=== PATIENT | female | born 1965 | race Caucasian/White ===

== ENCOUNTER → 2019-12-04 | Outpatient (CLI) | payer OTHER ==
[~2019-12-04] MED LIST: ALBIPROI INH; ALBU90OI INH; ALBU90OI6 INH; ARIP10 PO; ARIP30; ATOR10; AZIT250 PO; Abilify2 MG; Adult Low Dose81 MG PO; BCP; BUPR150ER PO; BUSP10; BUSP10 PO; BUSP5 PO; Benadryl 50 mg50 MG PO; CALCA500CH PO; CIPR500 PO; CLON.5 PO; DOC250 PO; DOCU100 PO; DOXY100 PO; DULO60 PO; Diflucan100 MG PO; Duoneb 2.5-0.5 M3 ML INH; FAMO20 PO; GABA400; GABA400 PO; GAVILAX17 GM PO; HYDACE5 PO; IBUP800; LAMO100; LAMO100 PO; LAMO25 PO; LAVAP17G PO; METO25 PO; METPRE4DP PO; Monodox100 MG PO; NITR100CA PO; OXYACE5T PO; PANT40; PHENA200 PO; PRED10 PO; PRED20 PO; PROM25 PO; Prednisone20 MG PO; QUET200; QUET25; QUET25 PO; RXHYDACE PO; RXOXYACE PO; SENN187 PO; SIME80CH PO; SULTRIDS PO; TERC.4TC PV; Ultram50 MG PO; VENL75ER; VENL75ER PO; VIBRID; Vistaril25 MG PO; Zofran4 MG PO
[2019-12-07 05:31] LABS: CHLAMYDIA TRACHOMATIS, NAA Negative (Negative); NEISSERIA GONORRHOEAE, NAA Negative (Negative)
== END | disposition home or self-care (01) ==
LOC: LAB 18:11 → LAB SHORT 18:11
PROVIDERS: Obstetrics & Gynecology
DX: N89.8 Other specified noninflammatory disorders of vagina (principal); Z20.2 Contact with and (suspected) exposure to infections with a predominantly sexual mode of transmission
CPT/HCPCS: 87070; 87205; 87491; 87591

== ENCOUNTER 2021-01-19 21:26 | Emergency (ER) | payer OTHER ==
[~2021-01-19] VITALS: Ht 167.6 cm; Wt 63.5 kg
== END 2021-01-19 23:44 | disposition home or self-care (01) ==
LOC: ER 21:26
DX: S01.511A Laceration without foreign body of lip, initial encounter (principal); Z88.0 Allergy status to penicillin; Z88.8 Allergy status to other drugs, medicaments and biological substances; Z79.899 Other long term (current) drug therapy
CPT/HCPCS: 12013; 99282-25; A9270

== ENCOUNTER 2021-01-22 11:59 | Emergency (ER) | payer OTHER ==
[~2021-01-22] VITALS: Ht 167.6 cm; Wt 64.9 kg
[~2021-01-22 11:59] MED LIST changes: +Cleocin HCl300 MG PO; +LATUDA PO; +QVAR REDIHALE10.6 G3 INH
[2021-01-22 12:31] LABS: BASOPHILS ABSOLUTE AUTO 0.03 K/mm3 (0.00-0.23); BASOPHILS PERCENT AUTO 0 % (0-2); EOSINOPHILS PERCENT AUTO 3 % (0-6); Hematocrit 42.5 % (33.0-51.0); Hemoglobin 14.4 g/dL (11.5-16.0); IMMATURE GRAN ABSOLUTE AUTO 0.01 K/mm3 (0.00-0.10); IMMATURE GRAN PERCENT AUTO 0 % (0-1); LYMPHOCYTES ABSOLUTE AUTO 2.63 K/mm3 (0.84-5.20); LYMPHOCYTES PERCENT AUTO 35 % (21-46); MONOCYTES ABSOLUTE AUTO 0.54 K/mm3 (0.16-1.47); MONOCYTES PERCENT AUTO 7 % (4-13); Mean Corpuscular HGB 29.6 pg (26.0-34.0); Mean Corpuscular HGB Conc 33.9 g/dL (31.5-36.5); Mean Corpuscular Volume 87 fL (80-100); Mean Platelet Volume 9.6 fL (9.1-12.4); NEUTROPHILS ABSOLUTE AUTO 4.11 K/mm3 (1.96-9.15); NEUTROPHILS PERCENT AUTO 55 % (41-73); Platelet Count 256 K/mm3 (150-400); RDW Coefficient Variation 12.9 % (11.7-14.2); RDW Standard Deviation 41.2 fL (35.1-46.3); Red Blood Cell Count 4.86 M/mm3 (3.80-5.20); White Blood Cell Count 7.52 K/mm3 (4.00-11.30)
[2021-01-22 12:54] LABS: Alanine Aminotransfer (ALT/SGP 17 U/L (12-78); Albumin, Blood 3.5 g/dL (3.4-5.0); Albumin/Globulin Ratio 0.9 (0.8-1.8); Alk Phos 54 U/L (50-136); Anion Gap 4 mmol/L (6-16); Aspartate Aminotrans (AST/SGOT 13 U/L (12-37); Bilirubin, Total 0.4 mg/dL (0.1-1.0); Blood Urea Nitrogen 16 mg/dL (8-24); Bun/Creatinine Ratio 14.8 (12.0-20.0); CO2, Blood 28 mmol/L (21-32); Calcium, Blood 8.5 mg/dL (8.5-10.1); Chloride, Blood 109 mmol/L (98-108); Creatinine, Blood 1.08 mg/dL (0.40-1.00); Globulin, Blood 3.7 g/dL (2.2-4.0); Glomerular Filtration Rate 56 (60-); Glucose, Blood 85 mg/dL (70-99); Potassium, Blood 4.7 mmol/L (3.5-5.5); Sodium, Blood 141 mmol/L (136-145); Total Protein, Blood 7.2 g/dL (6.4-8.2); Troponin I <0.015 ng/mL (0.000-0.040)
[2021-01-22] MEDS ORDERED: ALBU90OI INH (15:00)
== END 2021-01-22 15:20 | disposition home or self-care (01) ==
LOC: ER 11:59
PROVIDERS: Physician Assistant
DX: J45.901 Unspecified asthma with (acute) exacerbation (principal); Z79.899 Other long term (current) drug therapy
CPT/HCPCS: 36415; 71046; 80053; 84484; 85025; 93005; 93010; 94640; 94760; 99285-25

== ENCOUNTER → 2021-05-30 | Outpatient (CLI) | payer OTHER ==
[2021-05-30 17:48] LABS: Albumin/Globulin Ratio 1.1 (0.8-1.8); Bilirubin, Total 0.5 mg/dL (0.1-1.0); Bun/Creatinine Ratio 11.6 (12.0-20.0); Calcium, Blood 9.6 mg/dL (8.5-10.1); Creatinine, Blood 1.12 mg/dL (0.40-1.00); Globulin, Blood 3.6 g/dL (2.2-4.0); Potassium, Blood 4.3 mmol/L (3.5-5.5); Total Protein, Blood 7.6 g/dL (6.4-8.2)
== END | disposition home or self-care (01) ==
LOC: LAB SHORT 13:51 → LAB 13:51
PROVIDERS: Physician Assistant
DX: E55.9 Vitamin D deficiency, unspecified (principal); R94.4 Abnormal results of kidney function studies
CPT/HCPCS: 80053; 82306

== ENCOUNTER → 2021-10-12 | Outpatient (CLI) | payer OTHER ==
[2021-10-12 14:09] LABS: Albumin, Blood 3.4 g/dL (3.4-5.0); Albumin/Globulin Ratio 0.9 (0.8-1.8); Bilirubin, Total 0.4 mg/dL (0.1-1.0); Bun/Creatinine Ratio 16.7 (12.0-20.0); Calcium, Blood 9.1 mg/dL (8.5-10.1); Creatinine, Blood 1.26 mg/dL (0.40-1.00); Globulin, Blood 3.6 g/dL (2.2-4.0); Potassium, Blood 4.3 mmol/L (3.5-5.5)
== END | disposition home or self-care (01) ==
LOC: LAB SHORT 10:20
PROVIDERS: Physician Assistant
DX: R94.4 Abnormal results of kidney function studies (principal)
CPT/HCPCS: 80053

== ENCOUNTER → 2021-10-12 | Outpatient (CLI) | payer OTHER ==
[2021-10-13 10:10] LABS: Candida species (DNA Probe) Negative (NEGATIVE); G. vaginalis (DNA Probe) Negative (NEGATIVE); T. vaginalis (DNA Probe) Positive (NEGATIVE)
== END | disposition home or self-care (01) ==
LOC: LAB SHORT 10:20
PROVIDERS: Physician Assistant
DX: L29.3 Anogenital pruritus, unspecified (principal)
CPT/HCPCS: 87086; 87480; 87510; 87660

== ENCOUNTER 2022-08-01 13:47 | Emergency (ER) | payer OTHER ==
[~2022-08-01] VITALS: Ht 167.6 cm; Wt 68.0 kg
[2022-08-01 15:01] LABS: BASOPHILS ABSOLUTE AUTO 0.04 K/mm3 (0.00-0.23); BASOPHILS PERCENT AUTO 1 % (0-2); EOSINOPHILS ABSOLUTE AUTO 0.06 K/mm3 (0.00-0.68); EOSINOPHILS PERCENT AUTO 1 % (0-6); Hematocrit 43.7 % (33.0-51.0); Hemoglobin 14.5 g/dL (11.5-16.0); IMMATURE GRAN ABSOLUTE AUTO 0.01 K/mm3 (0.00-0.10); IMMATURE GRAN PERCENT AUTO 0 % (0-1); LYMPHOCYTES ABSOLUTE AUTO 3.38 K/mm3 (0.84-5.20); LYMPHOCYTES PERCENT AUTO 44 % (21-46); MONOCYTES ABSOLUTE AUTO 0.46 K/mm3 (0.16-1.47); MONOCYTES PERCENT AUTO 6 % (4-13); Mean Corpuscular HGB 29.6 pg (26.0-34.0); Mean Corpuscular HGB Conc 33.2 g/dL (31.5-36.5); Mean Corpuscular Volume 89 fL (80-100); Mean Platelet Volume 8.9 fL (9.1-12.4); NEUTROPHILS ABSOLUTE AUTO 3.66 K/mm3 (1.96-9.15); NEUTROPHILS PERCENT AUTO 48 % (41-73); Platelet Count 320 K/mm3 (150-400); RDW Coefficient Variation 13.1 % (11.7-14.2); White Blood Cell Count 7.61 K/mm3 (4.00-11.30)
[2022-08-01 15:53] LABS: Albumin, Blood 3.8 g/dL (3.4-5.0); Albumin/Globulin Ratio 1.1 (0.8-1.8); Bilirubin, Total 0.3 mg/dL (0.1-1.0); Calcium, Blood 9.1 mg/dL (8.5-10.1); Creatinine, Blood 1.05 mg/dL (0.40-1.00); Globulin, Blood 3.5 g/dL (2.2-4.0); Potassium, Blood 3.9 mmol/L (3.5-5.5); Total Protein, Blood 7.3 g/dL (6.4-8.2)
[2022-08-01] MEDS ORDERED: BUPROPION XL150 M1 PO (17:05)
[2022-08-01] MEDS ORDERED: Lamictal150 MG PO (17:06)
[2022-08-01] MEDS ORDERED: BUPR75 PO (17:07)
[2022-08-01] MEDS ORDERED: HYDR1TAB94 PO (19:19)
== END 2022-08-01 19:40 | disposition home or self-care (01) ==
LOC: ER 13:47
PROVIDERS: Physician Assistant
DX: R10.11 Right upper quadrant pain (principal); K80.50 Calculus of bile duct without cholangitis or cholecystitis without obstruction; Z88.0 Allergy status to penicillin; Z88.8 Allergy status to other drugs, medicaments and biological substances; Z79.899 Other long term (current) drug therapy; J45.909 Unspecified asthma, uncomplicated
CPT/HCPCS: 36415; 71046; 76705; 80053; 83690; 84484; 85025; 93005; 93010; J2405; J3010; J7030

== ENCOUNTER → 2022-08-04 | Outpatient (CLI) | payer OTHER ==
[~2022-08-04] MED LIST changes: +BUPR75 PO; +BUPROPION XL150 M1 PO; +HYDR1TAB94 PO; +Lamictal150 MG PO
[2022-08-04 17:25] LABS: Albumin, Blood 3.7 g/dL (3.4-5.0); Albumin/Globulin Ratio 1.1 (0.8-1.8); Bilirubin, Total 0.3 mg/dL (0.1-1.0); Bun/Creatinine Ratio 16.8 (12.0-20.0); Calcium, Blood 8.8 mg/dL (8.5-10.1); Creatinine, Blood 1.07 mg/dL (0.40-1.00); Globulin, Blood 3.4 g/dL (2.2-4.0); Total Protein, Blood 7.1 g/dL (6.4-8.2)
[2022-08-04 17:30] LABS: BASOPHILS ABSOLUTE AUTO 0.04 K/mm3 (0.00-0.23); BASOPHILS PERCENT AUTO 1 % (0-2); EOSINOPHILS ABSOLUTE AUTO 0.07 K/mm3 (0.00-0.68); EOSINOPHILS PERCENT AUTO 1 % (0-6); Hematocrit 38.7 % (33.0-51.0); Hemoglobin 13.2 g/dL (11.5-16.0); IMMATURE GRAN ABSOLUTE AUTO 0.02 K/mm3 (0.00-0.10); IMMATURE GRAN PERCENT AUTO 0 % (0-1); LYMPHOCYTES ABSOLUTE AUTO 2.99 K/mm3 (0.84-5.20); LYMPHOCYTES PERCENT AUTO 43 % (21-46); MONOCYTES ABSOLUTE AUTO 0.48 K/mm3 (0.16-1.47); MONOCYTES PERCENT AUTO 7 % (4-13); Mean Corpuscular HGB Conc 34.1 g/dL (31.5-36.5); Mean Corpuscular Volume 88 fL (80-100); NEUTROPHILS ABSOLUTE AUTO 3.36 K/mm3 (1.96-9.15); NEUTROPHILS PERCENT AUTO 48 % (41-73); Platelet Count 283 K/mm3 (150-400); White Blood Cell Count 6.96 K/mm3 (4.00-11.30)
== END | disposition home or self-care (01) ==
LOC: LAB SHORT 17:03 → LAB 17:03
PROVIDERS: Physician Assistant Surgical
DX: R10.11 Right upper quadrant pain (principal)
CPT/HCPCS: 80053; 83690; 85025

== ENCOUNTER 2023-05-27 12:15 | Emergency (ER) | payer OTHER ==
[~2023-05-27] VITALS: Ht 167.6 cm; Wt 69.8 kg
[2023-05-27 12:53] LABS: BASOPHILS ABSOLUTE AUTO 0.02 K/mm3 (0.00-0.23); BASOPHILS PERCENT AUTO 0 % (0-2); EOSINOPHILS ABSOLUTE AUTO 0.25 K/mm3 (0.00-0.68); EOSINOPHILS PERCENT AUTO 4 % (0-6); Hematocrit 40.8 % (33.0-51.0); Hemoglobin 13.6 g/dL (11.5-16.0); IMMATURE GRAN ABSOLUTE AUTO 0.01 K/mm3 (0.00-0.10); IMMATURE GRAN PERCENT AUTO 0 % (0-1); LYMPHOCYTES ABSOLUTE AUTO 2.42 K/mm3 (0.84-5.20); LYMPHOCYTES PERCENT AUTO 37 % (21-46); MONOCYTES ABSOLUTE AUTO 0.39 K/mm3 (0.16-1.47); MONOCYTES PERCENT AUTO 6 % (4-13); Mean Corpuscular HGB 29.4 pg (26.0-34.0); Mean Corpuscular HGB Conc 33.3 g/dL (31.5-36.5); Mean Corpuscular Volume 88 fL (80-100); Mean Platelet Volume 9.4 fL (9.1-12.4); NEUTROPHILS ABSOLUTE AUTO 3.41 K/mm3 (1.96-9.15); NEUTROPHILS PERCENT AUTO 53 % (41-73); Platelet Count 282 K/mm3 (150-400); RDW Coefficient Variation 12.9 % (11.7-14.2); RDW Standard Deviation 41.9 fL (35.1-46.3); Red Blood Cell Count 4.63 M/mm3 (3.80-5.20)
[2023-05-27 13:10] LABS: Albumin, Blood 3.3 g/dL (3.4-5.0); Albumin/Globulin Ratio 1.1 (0.8-1.8); Bilirubin, Total 0.3 mg/dL (0.1-1.0); Bun/Creatinine Ratio 17.1 (12.0-20.0); Calcium, Blood 8.4 mg/dL (8.5-10.1); Creatinine, Blood 0.94 mg/dL (0.40-1.00); Globulin, Blood 2.9 g/dL (2.2-4.0); Potassium, Blood 4.2 mmol/L (3.5-5.5); Total Protein, Blood 6.2 g/dL (6.4-8.2)
[2023-05-27 16:00] VITALS: BP 147/82
[2023-05-27 16:43] LABS: Source, Urine Clean Catch
[2023-05-27 16:49] LABS: Appearance, Urine Clear (Clear); Bilirubin, Urine Neg (Neg); Blood, Urine 3+ (Neg); Color, Urine Yellow (P-Yellow); Glucose Qualitative, Urine Neg (Neg); Ketones, Urine Neg (Neg); Leukocyte Esterase, Urine Neg (Neg); Nitrite, Urine Neg (Neg); Protein, Urine Neg (Neg); Specific Gravity, Urine 1.015 (1.003-1.022); Urobilinogen, Urine 1+ (Normal); pH, Urine 6.5 (5.0-8.0)
[2023-05-27 16:57] LABS: Bacteria Few /hpf; Squamous Epithelial Cells Mod /hpf (Few); White Blood Cells, Urine 0-2 /hpf (0-5)
== END 2023-05-27 17:09 | disposition home or self-care (01) ==
LOC: ER 12:15
PROVIDERS: Student in an Organized Health Care Education/Training Program
DX: K59.00 Constipation, unspecified (principal); R14.0 Abdominal distension (gaseous); Z88.8 Allergy status to other drugs, medicaments and biological substances; Z88.0 Allergy status to penicillin; J45.909 Unspecified asthma, uncomplicated; F17.200 Nicotine dependence, unspecified, uncomplicated
CPT/HCPCS: 80053; 81001; 83690; 85025; 93005; 93010; 99284

== ENCOUNTER → 2023-08-27 | Outpatient (CLI) | payer OTHER | LOC: LAB SHORT 09:45 → LAB 09:45 | DX: R82.79 Other abnormal findings on microbiological examination of urine (principal) | CPT/HCPCS: 87077; 87086; 87186 ==

== ENCOUNTER 2023-09-20 19:11 | Emergency (ER) | payer OTHER ==
[~2023-09-20] VITALS: Ht 167.6 cm; Wt 66.2 kg
[2023-09-20 19:28] VITALS: BP 142/76
[2023-09-20 19:43] LABS: BASOPHILS ABSOLUTE AUTO 0.03 K/mm3 (0.00-0.23); BASOPHILS PERCENT AUTO 0 % (0-2); EOSINOPHILS ABSOLUTE AUTO 0.07 K/mm3 (0.00-0.68); EOSINOPHILS PERCENT AUTO 1 % (0-6); Hematocrit 41.6 % (33.0-51.0); IMMATURE GRAN ABSOLUTE AUTO 0.02 K/mm3 (0.00-0.10); IMMATURE GRAN PERCENT AUTO 0 % (0-1); LYMPHOCYTES ABSOLUTE AUTO 2.14 K/mm3 (0.84-5.20); LYMPHOCYTES PERCENT AUTO 25 % (21-46); MONOCYTES ABSOLUTE AUTO 0.48 K/mm3 (0.16-1.47); MONOCYTES PERCENT AUTO 6 % (4-13); Mean Corpuscular HGB Conc 33.7 g/dL (31.5-36.5); Mean Corpuscular Volume 89 fL (80-100); Mean Platelet Volume 9.3 fL (9.1-12.4); NEUTROPHILS ABSOLUTE AUTO 5.72 K/mm3 (1.96-9.15); NEUTROPHILS PERCENT AUTO 68 % (41-73); Platelet Count 314 K/mm3 (150-400); RDW Coefficient Variation 12.7 % (11.7-14.2); RDW Standard Deviation 41.3 fL (35.1-46.3); Red Blood Cell Count 4.67 M/mm3 (3.80-5.20); White Blood Cell Count 8.46 K/mm3 (4.00-11.30)
[2023-09-20 20:03] LABS: Albumin, Blood 3.3 g/dL (3.4-5.0); Albumin/Globulin Ratio 0.9 (0.8-1.8); Bilirubin, Total 0.3 mg/dL (0.1-1.0); Bun/Creatinine Ratio 15.5 (12.0-20.0); Creatinine, Blood 1.03 mg/dL (0.40-1.00); Globulin, Blood 3.6 g/dL (2.2-4.0); Total Protein, Blood 6.9 g/dL (6.4-8.2)
[2023-09-20 20:33] LABS: Source, Urine Clean Catch
[2023-09-20 20:41] LABS: Bilirubin, Urine Neg (Neg); Blood, Urine 2+ (Neg); Glucose Qualitative, Urine Neg (Neg); Ketones, Urine Neg (Neg); Leukocyte Esterase, Urine 1+ (Neg); Nitrite, Urine Neg (Neg); Protein, Urine Neg (Neg); Urobilinogen, Urine NORM (Normal); pH, Urine 6.5 (5.0-8.0)
[2023-09-20 20:59] LABS: Appearance, Urine Clear (Clear); Color, Urine Yellow (P-Yellow)
[2023-09-20 21:00] LABS: Bacteria Few /hpf; Red Blood Cells, Urine 0-2 /hpf (0-2); Squamous Epithelial Cells Few /hpf (Few); White Blood Cells, Urine 0-2 /hpf (0-5)
== END 2023-09-20 21:26 | disposition left against medical advice (07) ==
LOC: ER 19:11
PROVIDERS: Student in an Organized Health Care Education/Training Program
DX: R55 Syncope and collapse (principal); R42 Dizziness and giddiness; I10 Essential (primary) hypertension; Z53.21 Procedure and treatment not carried out due to patient leaving prior to being seen by health care provider
CPT/HCPCS: 80053; 81001; 85025; 87077; 87086; 87186; 93005; 93010

== ENCOUNTER 2023-10-28 21:29 | Emergency (ER) | payer OTHER ==
[~2023-10-28] VITALS: Ht 167.6 cm; Wt 67.1 kg
[2023-10-28 21:30] VITALS: BP 166/93
== END 2023-10-28 21:52 | disposition home or self-care (01) ==
LOC: ER 21:29
DX: R04.0 Epistaxis (principal); Y04.0XXA Assault by unarmed brawl or fight, initial encounter; Y92.129 Unspecified place in nursing home as the place of occurrence of the external cause; F17.200 Nicotine dependence, unspecified, uncomplicated; J45.909 Unspecified asthma, uncomplicated; F31.9 Bipolar disorder, unspecified
CPT/HCPCS: A9270

== ENCOUNTER 2024-11-10 09:02 | Emergency (ER) | payer OTHER ==
[~2024-11-10] VITALS: Ht 167.6 cm; Wt 68.0 kg
[2024-11-10 09:09] VITALS: BP 152/75
[2024-11-10] MEDS ORDERED: Acetaminophen 500 MG Tab PO ONE (09:40)
[2024-11-10] MEDS ORDERED: Ibuprofen 600 MG Tab PO ONE (09:40)
[2024-11-10] MEDS ORDERED: OxyCODONE HCL 5 MG TAB PO ONE (12:05)
[2024-11-10] MEDS ORDERED: RX Prepack 6 Tabs Oxycodone 5mg UD ONE (12:05)
== END 2024-11-10 12:30 | disposition home or self-care (01) ==
LOC: ER 09:02
DX: S82.031A Displaced transverse fracture of right patella, initial encounter for closed fracture (principal); I12.9 Hypertensive chronic kidney disease with stage 1 through stage 4 chronic kidney disease, or unspecified chronic kidney disease; N18.9 Chronic kidney disease, unspecified; E78.5 Hyperlipidemia, unspecified; J45.909 Unspecified asthma, uncomplicated; F17.210 Nicotine dependence, cigarettes, uncomplicated; Z88.0 Allergy status to penicillin; Z88.8 Allergy status to other drugs, medicaments and biological substances; Z79.899 Other long term (current) drug therapy; Z59.89 Other problems related to housing and economic circumstances; W01.0XXA Fall on same level from slipping, tripping and stumbling without subsequent striking against object, initial encounter
CPT/HCPCS: 73562-RT; 99283-25; A9270

== ENCOUNTER 2024-11-19 11:27 | Day surgery (SDC) | payer OTHER ==
[~2024-11-19] VITALS: Ht 167.6 cm; Wt 74.8 kg
[~2024-11-19 11:27] MED LIST changes: +Bupivacaine 0.5% W/EPI 1:200000 SDV 30 ML Vial ONE; +Lactated Ringer's 1,000 ML IV ONE
[2024-11-19] MEDS ORDERED: propofoL 20 ML IV ONE (11:57)
[2024-11-19] MEDS ORDERED: FentaNYL Citrate 50 MCG/ML 2 ML Injection ONE ×2 (11:57→14:43)
[2024-11-19] MEDS ORDERED: Ondansetron HCl 2 MG / ML 2ML Vial ONE (11:58)
[2024-11-19] MEDS ORDERED: Dexamethasone Sod Phos 10 MG/ML 1ML VIAL ONE (11:58)
[2024-11-19] MEDS ORDERED: Ketorolac Tromethamine 30mg Vial ONE (11:58)
[2024-11-19] MEDS ORDERED: MONT10T (12:16)
[2024-11-19] MEDS ORDERED: ESTRADIOL1 M1 PO (12:16)
[2024-11-19] MEDS ORDERED: AMLODIPINE BESYL5 MG PO (12:17)
[2024-11-19] MEDS ORDERED: VRAYLAR6 MG PO (12:17)
[2024-11-19] MEDS ORDERED: LOSA50 PO (12:17)
[2024-11-19] MEDS ORDERED: FAMO20 (12:20)
[2024-11-19] MEDS ORDERED: OMEP20ER PO (12:20)
[2024-11-19] MEDS ORDERED: ANORO ELLIPTA1 EAC1 INH (12:21)
[2024-11-19] MEDS ORDERED: Lactated Ringer's 1,000 ML IV ONE (12:37)
[2024-11-19] MEDS ORDERED: Midazolam HCl 1MG / ML 2ML Vial ONE (12:44)
[2024-11-19] MEDS ORDERED: CeFAZolin Sodium 2,000 MG VIAL ONE (12:50)
[2024-11-19] MEDS ORDERED: Dexmedetomidine HCL 200 MCG / 2 ML ONE (12:53)
--- NOTE | 2024-11-19 12:55 | NUR ---
11/19/24 1255 Cj Brennan IN PRE-OP
--- NOTE | 2024-11-19 15:00 | NUR ---
11/19/24 1500 Shy Benjamin PT LYING IN BED, DROWSY. ABLE TO REST AND FALL ASLEEP REPORTS PAIN 10/10 ON NUMERIC PAIN SCALE. EXPLAINED PAIN SCALE IN DETAIL TO PATIENT.
[2024-11-19 15:12] VITALS: BP 141/67
== END 2024-11-19 15:51 | disposition home or self-care (01) ==
LOC: ORSCSDS 11:27
PROVIDERS: Orthopaedic Surgery
PROC: 0QSD04Z Reposition Right Patella with Internal Fixation Device, Open Approach (ICD-10-PCS; principal; 2024-11-19 13:15)
DX: S82.001A Unspecified fracture of right patella, initial encounter for closed fracture (principal); W10.2XXA Fall (on)(from) incline, initial encounter; F17.210 Nicotine dependence, cigarettes, uncomplicated; J44.89 Other specified chronic obstructive pulmonary disease; Z79.899 Other long term (current) drug therapy; F41.9 Anxiety disorder, unspecified; F32.A Depression, unspecified; F31.9 Bipolar disorder, unspecified; E78.5 Hyperlipidemia, unspecified
CPT/HCPCS: 93005; 93010; J0690; J1100; J1885; J2250; J2405; J2704; J3010; J7120

== ENCOUNTER 2024-12-01 10:16 | Inpatient (IN) | payer OTHER ==
[~2024-12-01] VITALS: Ht 167.6 cm; Wt 76.5 kg
[2024-12-01] VITALS (10 sets, daily range): BP systolic 100–123; BP diastolic 62–92
[~2024-12-01 10:16] MED LIST changes: +AMLODIPINE BESYL5 MG PO; +ANORO ELLIPTA1 EAC1 INH; -Bupivacaine 0.5% W/EPI 1:200000 SDV 30 ML Vial ONE; +ESTRADIOL1 M1 PO; +LOSA50 PO; -Lactated Ringer's 1,000 ML IV ONE; +MONT10T PO; +OMEP20ER PO; +VRAYLAR6 MG PO
[2024-12-01 11:32] LABS: BASOPHILS PERCENT AUTO 1 % (0-2); EOSINOPHILS ABSOLUTE AUTO 0.18 K/mm3 (0.00-0.68); EOSINOPHILS PERCENT AUTO 1 % (0-6); Hematocrit 34.7 % (33.0-51.0); Hemoglobin 11.5 g/dL (11.5-16.0); IMMATURE GRAN ABSOLUTE AUTO 0.59 K/mm3 (0.00-0.10); IMMATURE GRAN PERCENT AUTO 3 % (0-1); LYMPHOCYTES ABSOLUTE AUTO 0.86 K/mm3 (0.84-5.20); LYMPHOCYTES PERCENT AUTO 5 % (21-46); MONOCYTES ABSOLUTE AUTO 0.72 K/mm3 (0.16-1.47); MONOCYTES PERCENT AUTO 4 % (4-13); Mean Corpuscular HGB 29.3 pg (26.0-34.0); Mean Corpuscular HGB Conc 33.1 g/dL (31.5-36.5); Mean Corpuscular Volume 89 fL (80-100); Mean Platelet Volume 8.8 fL (9.1-12.4); NEUTROPHILS ABSOLUTE AUTO 16.39 K/mm3 (1.96-9.15); NEUTROPHILS PERCENT AUTO 87 % (41-73); Platelet Count 657 K/mm3 (150-400); RDW Coefficient Variation 14.7 % (11.7-14.2); RDW Standard Deviation 47.6 fL (35.1-46.3); Red Blood Cell Count 3.92 M/mm3 (3.80-5.20); White Blood Cell Count 18.84 K/mm3 (4.00-11.30)
[2024-12-01 12:02] LABS: Albumin, Blood 1.9 g/dL (3.4-5.0); Albumin/Globulin Ratio 0.4 (0.8-1.8); Bilirubin, Total 0.6 mg/dL (0.1-1.0); Bun/Creatinine Ratio 26.4 (12.0-20.0); Calcium, Blood 8.7 mg/dL (8.5-10.1); Creatinine, Blood 1.1 mg/dL (0.40-1.00); Globulin, Blood 4.8 g/dL (2.2-4.0); Potassium, Blood 4.1 mmol/L (3.5-5.5); Total Protein, Blood 6.7 g/dL (6.4-8.2)
[2024-12-01] MEDS ORDERED: Vancomycin HCL 1,500 MG in NS 250 ML IV ONE (12:35)
[2024-12-01] MEDS ORDERED: HYDROmorphone HCl/Pf 1MG SYR IV ONE (13:15)
[2024-12-01] MEDS ORDERED: Lactated Ringer's 1,000 ML IV SCH ×3 (13:25→16:25)
[2024-12-01] MEDS ORDERED: Albuterol 2.5 MG/3 ML VIAL INH PRN (13:25)
[2024-12-01] MEDS ORDERED: FLU VACC TS2024-25(6MOS UP)/PF 45 MCG/0.5 ML SYRINGE IM SCH (13:25)
[2024-12-01] MEDS ORDERED: HYDROmorphone HCl/Pf 1MG SYR IV PRN (13:25)
[2024-12-01] MEDS ORDERED: MetroNIDAZOLE 500MG/NS 100 ml 100 ML IV SCH ×2 (14:00→23:00)
[2024-12-01] MEDS ORDERED: Metoclopramide HCl 5MG / ML 2ML Vial ONE (14:38)
[2024-12-01] MEDS ORDERED: Ondansetron HCl 2 MG / ML 2ML Vial ONE (14:38)
[2024-12-01] MEDS ORDERED: Ketorolac Tromethamine 30mg Vial ONE (14:38)
[2024-12-01] MEDS ORDERED: Dexamethasone Sod Phos 10 MG/ML 1ML VIAL ONE (14:38)
[2024-12-01] MEDS ORDERED: propofoL 20 ML IV ONE ×2 (14:39→16:57)
[2024-12-01] MEDS ORDERED: Ketamine HCl 100 MG / ML 5ML Vial ONE (15:22)
[2024-12-01] MEDS ORDERED: HYDROmorphone HCl/Pf 1MG SYR ONE (15:22)
[2024-12-01] MEDS ORDERED: propofoL 50 ML IV ONE (15:56)
[2024-12-01] MEDS ORDERED: Acetaminophen 500 MG Tab PO ONE (16:25)
[2024-12-01] MEDS ORDERED: Phenylephrine HCl 100 MCG/ML-NS 10MLSYR (1MG/10ML) ONE (16:45)
--- NOTE | 2024-12-01 16:49 | NUR ---
1610- PT ARRIVED TO DAY SURGERY FROM ER ROOM 23 AFTER ULTRASOUND COMPLETE. PT ASSISTED INTO PATIENT GOWN, BELONGINGS INTO PT BAG WITH NAME ON IT. GLASSES PLACED IN BAG WITH PATIENT LABEL AND PLACED INTO PT'S PURSE. BELONGS BED PLACED UNDER GURNEY. PT C/O BEING COLD. WARM BLANKETS APPLIED AND NASIM HUGGER STARTED. PT TEARFUL, STATES "THE WARM BLANKETS JUST FEEL SO NICE." TYLENOL 1000MG PO GIVEN WITH SIPS OF WATER PER ANESTHESIOLOGIST ORDER.
[2024-12-01] MEDS ORDERED: Vancomycin HCl 1000 MG ADDvantage ONE (17:19)
[2024-12-01] MEDS ORDERED: Sodium Hypochlorite 480 ML BTL (0.25%) ONE (17:24)
[2024-12-01] MEDS ORDERED: Sennosides 8.6 MG Tab PO SCH (21:00)
[2024-12-02 00:13] VITALS: BP 100/63
[2024-12-02] MEDS ORDERED: Vancomycin HCL 750 MG in NS 250 ML IV SCH (01:00)
[2024-12-02 05:31] LABS: BASOPHILS ABSOLUTE AUTO 0.04 K/mm3 (0.00-0.23); BASOPHILS PERCENT AUTO 0 % (0-2); EOSINOPHILS ABSOLUTE AUTO 0.01 K/mm3 (0.00-0.68); EOSINOPHILS PERCENT AUTO 0 % (0-6); Hematocrit 28.2 % (33.0-51.0); Hemoglobin 9.1 g/dL (11.5-16.0); IMMATURE GRAN ABSOLUTE AUTO 0.59 K/mm3 (0.00-0.10); IMMATURE GRAN PERCENT AUTO 3 % (0-1); LYMPHOCYTES ABSOLUTE AUTO 0.83 K/mm3 (0.84-5.20); LYMPHOCYTES PERCENT AUTO 4 % (21-46); MONOCYTES ABSOLUTE AUTO 0.62 K/mm3 (0.16-1.47); MONOCYTES PERCENT AUTO 3 % (4-13); Mean Corpuscular HGB 29.2 pg (26.0-34.0); Mean Corpuscular HGB Conc 32.3 g/dL (31.5-36.5); Mean Corpuscular Volume 90 fL (80-100); Mean Platelet Volume 8.8 fL (9.1-12.4); NEUTROPHILS ABSOLUTE AUTO 18.53 K/mm3 (1.96-9.15); NEUTROPHILS PERCENT AUTO 90 % (41-73); Platelet Count 584 K/mm3 (150-400); RDW Coefficient Variation 14.7 % (11.7-14.2); RDW Standard Deviation 48.4 fL (35.1-46.3); Red Blood Cell Count 3.12 M/mm3 (3.80-5.20); White Blood Cell Count 20.62 K/mm3 (4.00-11.30)
[2024-12-02 05:48] VITALS: BP 97/58
[2024-12-02 06:08] LABS: Bun/Creatinine Ratio 24.6 (12.0-20.0); Calcium, Blood 8.3 mg/dL (8.5-10.1); Creatinine, Blood 1.22 mg/dL (0.40-1.00); Potassium, Blood 4.8 mmol/L (3.5-5.5)
[2024-12-02 07:14] VITALS: BP 97/56
[2024-12-02] MEDS ORDERED: Nicotine 14 MG PATCH TOP SCH (09:00)
[2024-12-02] MEDS ORDERED: Sodium Hypochlorite 480 ML BTL (0.25%) TOP SCH (09:00)
[2024-12-02] MEDS ORDERED: HYDROmorphone HCl 2 MG Tab PO PRN (09:10)
[2024-12-02 10:32] VITALS: BP 113/65
[2024-12-02 15:29] VITALS: BP 109/63
--- NOTE | 2024-12-02 16:35 | NUR ---
PT HAS BEEN AOX4 AND COOPERATIVE OF CARE. PT NEEDS REPOSTIONED EVERY COUPLE HOURS AND HAS HER L LEG ELEVATED. PT HAS BEEN MANAGING PAIN WITH ORAL PAIN MEDICATION. DR GAMBOA CAME TO ROOM AND DID FLUSH WITH DAKINS SOLUTION 200MLS INTO RED DEIDRE DRAIN WHICH THEN DRAINS TO THE PUMA DRAIN. PT TOLERATED WELL AND TREATED FOR PAIN PER EMAR. PT RESTING WITH CALL LIGHT IN REACH WILL CONTINUE TO MONITOR.
[2024-12-02 19:06] VITALS: BP 118/55
[2024-12-03] VITALS (21 sets, daily range): BP systolic 115–149; BP diastolic 59–76
[2024-12-03 00:16] LABS: Vancomycin, Trough 20.1 ug/mL (5.0-10.0)
--- NOTE | 2024-12-03 05:53 | NUR ---
NOC SUMMARY- PT PAIN MANAGED WELL PER DEC. PT HAS BEEN NPO SINCE MIDNIGHT. PT REPOSITIONED Q2. PT VOIDING VIA PUREWICK. PUMA DRAIN PRODUCING SS FLUID. SHADOWING NOTED ON CHEMA BANDAGE. PT CALL LIGHT IN REACH.
[2024-12-03 07:09] LABS: FERRITIN 785 ng/mL (15-150)
[2024-12-03] MEDS ORDERED: Vancomycin HCL 1,250 MG in NS 250 ML IV SCH (08:00)
[2024-12-03 08:10] LABS: IRON BIND.CAP.(TIBC) 149 ug/dL (250-450); IRON SATURATION 14 % (15-55); IRON, SERUM 21 ug/dL (27-159); UIBC 128 ug/dL (131-425)
[2024-12-03] MEDS ORDERED: CeFAZolin Sodium 2,000 MG in NS 100 ML IV SCH (13:00)
[2024-12-03] MEDS ORDERED: propofoL 20 ML IV ONE (15:06)
--- NOTE | 2024-12-03 15:07 | NUR ---
PT TO OR AT ABOUT 1500
[2024-12-03] MEDS ORDERED: Lactated Ringer's 1,000 ML IV ONE (15:08)
--- NOTE | 2024-12-03 15:11 | NUR ---
History, Chart, Medications and Allergies reviewed before start of procedure. Pre-Op teaching done. Pt verbalizes understanding. Patient confirms NPO status and agrees with scheduled surgery. PT LEFT ALL BELONGINGS IN SURG FLOOR RM.
[2024-12-03] MEDS ORDERED: Bupivacaine 0.5% W/EPI 1:200000 SDV 30 ML Vial ONE (15:22)
[2024-12-03] MEDS ORDERED: Bupivacaine 0.5% HCl 5 MG/ML 30MLVIAL ONE (15:22)
[2024-12-03] MEDS ORDERED: Vancomycin HCl 1000 MG ADDvantage ONE (15:25)
[2024-12-03] MEDS ORDERED: Midazolam HCl 1MG / ML 2ML Vial ONE (15:32)
[2024-12-03] MEDS ORDERED: FentaNYL Citrate 50 MCG/ML 2 ML Injection ONE (15:33)
[2024-12-03] MEDS ORDERED: Sodium Hypochlorite 480 ML BTL (0.25%) ONE (16:16)
--- NOTE | 2024-12-03 17:03 | NUR ---
12/03/24 1703 Rody Rojas NOTED: SURGICAL INCISION TO RIGHT KNEE, WITH STITCHES AND DRAINS X2
[2024-12-03] MEDS ORDERED: HYDROmorphone HCl 0.5 MG/0.5 ML SYR ONE ×2 (17:12→17:27)
--- NOTE | 2024-12-03 17:51 | NUR ---
PT HAS ABD, 4X4 CHEMA WRAP ON RIGHT KNEE, JPED DRAIN AND RED RUBBER. PT ALSO RECIEVED OSTEOSET REABSORBABLE BEAD IN WOUND
--- NOTE | 2024-12-03 18:16 | NUR ---
DR RIVERA CALLED FOR CLAIRIFICATION ON RED RUBBER DRAIN, INSTRUCTIONS GIVEN TO PASS ALONG TO NIGHTS AND THEN TO DAYS. SHE WILL ADDRESS THE DRAIN AND WHAT TO DO WITH IT WITH DAY SHIFT IN THE AM
--- NOTE | 2024-12-03 19:33 | NUR ---
POST OP: REPORT RECEIVED FROM [employer] EXCHANGE ADMINISTRATOR. PT TO UNIT AT ABOUT 1815. A/O, VSS. SURGICAL SITE WNL. PEDAL PULSE +2, PT ABLE TO WIGGLE TOES. PUMA DRAIN HAS RED DRAINAGE AND IS COMPRESSED. CALL LIGHT IN REACH. REPORT PASSED TO NOC RITO MAHAN
[2024-12-04 03:51] VITALS: BP 145/75
--- NOTE | 2024-12-04 05:19 | NUR ---
NOC SUMMARY- PT PAIN MANAGED WELL. PT WAS EMOTIONAL AT BEGINNING OF SHIT. PT IN BETTER SPIRITS THIS AM. PT CHEMA BANDAGE WAS LOOSENED AT THIGH AREA. SOME SWELLING AND DISCOMFORT WAS NOTED. PT REPORTS IMPROVED COMFORT. PT REPOSITIONED TOLERATED. PUMA DRAIN PRODUCING SS FLUID. PT VOIDING VIA PURWICK DEVICE. PT BRIEF CHANGED NEEDED. CALL LIGHT IN REACH.
[2024-12-04 05:26] LABS: BASOPHILS ABSOLUTE AUTO 0.04 K/mm3 (0.00-0.23); BASOPHILS PERCENT AUTO 0 % (0-2); EOSINOPHILS ABSOLUTE AUTO 0.08 K/mm3 (0.00-0.68); EOSINOPHILS PERCENT AUTO 1 % (0-6); Hematocrit 26.8 % (33.0-51.0); Hemoglobin 8.7 g/dL (11.5-16.0); IMMATURE GRAN ABSOLUTE AUTO 0.55 K/mm3 (0.00-0.10); IMMATURE GRAN PERCENT AUTO 4 % (0-1); LYMPHOCYTES ABSOLUTE AUTO 1.34 K/mm3 (0.84-5.20); LYMPHOCYTES PERCENT AUTO 10 % (21-46); MONOCYTES ABSOLUTE AUTO 0.68 K/mm3 (0.16-1.47); MONOCYTES PERCENT AUTO 5 % (4-13); Mean Corpuscular HGB 28.9 pg (26.0-34.0); Mean Corpuscular HGB Conc 32.5 g/dL (31.5-36.5); Mean Corpuscular Volume 89 fL (80-100); Mean Platelet Volume 8.7 fL (9.1-12.4); NEUTROPHILS PERCENT AUTO 79 % (41-73); Platelet Count 609 K/mm3 (150-400); RDW Coefficient Variation 14.9 % (11.7-14.2); RDW Standard Deviation 48.5 fL (35.1-46.3); Red Blood Cell Count 3.01 M/mm3 (3.80-5.20); White Blood Cell Count 12.89 K/mm3 (4.00-11.30)
[2024-12-04 05:50] LABS: Bun/Creatinine Ratio 22.8 (12.0-20.0); Calcium, Blood 8.1 mg/dL (8.5-10.1); Creatinine, Blood 0.96 mg/dL (0.40-1.00); Potassium, Blood 4.2 mmol/L (3.5-5.5)
[2024-12-04 07:16] VITALS: BP 141/69
--- NOTE | 2024-12-04 10:36 | NUR ---
MORNING NOTE THIS RN ASSUMED CARE AT APPROX 0715. PATIENT ALERT AND ORIENTED X4. COMMUNICATES NEEDS EFFECTIVELY. VSS. TELEMETRY SHOWING SINUS TACH 90s-100s PRIOR TO REMOVAL PER MD COOPER ORDER. SBP 140s. MAP >65. DENIES CHEST PAIN, PRESSURE. ON ROOM AIR, SATs >90%. POD 1 SECOND R I/D - KERLEX AND ACEWRAP DRESSING WITH MINIMAL SEROSANGUINOUS DRAINAGE ABOVE R KNEE. PUMA DRAIN WITH RED SANGUINOUS DRAINAGE AND RED DEIDRE DRAIN. MD RIVERA CONTACTED REGARDING DRAIN MANAGEMENT - MD TO ROUND "AFTER LUNCH" TO FLUSH DRAIN AND PROVIDE RN EDUCATION. DISCUSSED PHYSICAL THERAPY EVAL - PER MD, NO THERAPY EVAL ORDER NECESSARY. STAFF TO AMBULATE PATIENT - PATIENT NWB RLE. PLAN TO ADVANCE MOBILITY FOLLOWING MD RIVERA ROUNDING. ON ROOM AIR, SATs >90%. PUREWICK IN PLACE FOR URINARY MANAGEMENT - YELLOW URINE TO SUCTION. REPORTING CONSTIPATION - BOWEL CARE ORDERED WHILE MD COOPER ROUNDING. FAMILY AT BEDSIDE. CALL LIGHT IN REACH.
--- NOTE | 2024-12-04 11:59 | NUR ---
[facility] CALLED TO CONFIRM PTS NEED TO [place]. STATES ANTICIPATED DC'S TODAY SO POSSIBLY WILL BE ABLE TO ACCEPT
[2024-12-04 14:19] VITALS: BP 127/65
--- NOTE | 2024-12-04 16:00 | NUR ---
UPDATE [employer] TEAM LEAD CONTACTED MD RIVERA REGARDING WOUND CARE AND DRAIN MANAGEMENT MD TO ROUND "AFTER LUNCH." PER MD, SHE WILL ROUND FOLLOWING CLINIC.
--- NOTE | 2024-12-04 19:11 | NUR ---
SHIFT SUMMARY NO ACUTE CHANGES SINCE PREVIOUS NOTES. PATIENT REMAINS ALERT AND ORIENTED X4. COMMUNICATES NEEDS EFFECTIVELY. EXPERIENCES EPISODES OF ANXIETY IN REGARDS TO PAIN - MANAGING PER EMAR AND WITH THERAPUETIC DISCUSSION. POD 1 SECOND I/D R KNEE - MD RIVERA AND HEBERT AT BEDSIDE THIS AFTERNOON. DAKIN'S SOLUTION FLUSHED THROUGH RED DEIDRE DRAIN. MINIMAL SANGUINOUS DRAINAGE FROM PUMA DRAIN PRIOR TO FLUSH. DRESSING TO RLE CHANGED - SEE WOUND CARE ORDERS. PATIENT IS NWB TO RLE UNTIL IMMOBILIZER PLACEMENT. FOLLOWING PLACEMENT, PATIENT IS WBAT. UP WITH 2P ASSIST FWW GB TO CHAIR OR BSC. BEDBATH COMPLETED. VOIDING - PW REMOVED PATIENT CONTINENT OF URINE. REPORTS FLATULENCE - NO BM TODAY. CALL LIGHT IN REACH.
[2024-12-04 19:34] VITALS: BP 140/61
[2024-12-04] MEDS ORDERED: Sennosides 8.6 MG Tab PO SCH (21:00)
[2024-12-04] MEDS ORDERED: Docusate Sodium 100 MG Cap PO SCH (21:00)
[2024-12-04] MEDS ORDERED: Ondansetron HCl 2 MG / ML 2ML Vial IV PRN (21:40)
[2024-12-05] VITALS (9 sets, daily range): BP systolic 116–149; BP diastolic 55–76
--- NOTE | 2024-12-05 04:31 | NUR ---
SHIFT SUMMARY CARLITOS WAS ALERT BUT DROWSY AND FULLY ORIENTED ON ASSESMENT. PT C/O SEVERE PAIN TO L KNEE, MEDICATED TO MODERATE EFFECT. PT PUMA DRIANING SCANT SERROUS FLUID. DRESSING C/D/I. DISTAL CIRCULATION AND SENSATION INTACT. ABLE TO AMBULATE WITH LEG IMMOBILIZER AND 2P ASSIST. NO ACUTE EVENTS TONIGHT. NO NOTED CHANGES TO PT CONDITION.
[2024-12-05] MEDS ORDERED: Iron Dextran 50 MG / ML 2ML Vial IV ONE (10:00)
--- NOTE | 2024-12-05 10:58 | NUR ---
1ST DOSE OF IV IRON DEXTRAN GIVEN AT 1030. VITAL SIGNS TAKEN EVERY 15 MINUTES FOR 1 HR. SEE VS. PT DENIES ANY SOB, CHILLS, CP AT THIS TIME.
[2024-12-05] MEDS ORDERED: Iron Dextran 975 MG in NS 250 ML IV ONE (11:00)
[2024-12-05] MEDS ORDERED: Sod Phosphate/Sod Biphosphate 132 ML BTL PR ONE ×2 (13:00→21:00)
--- NOTE | 2024-12-05 13:22 | NUR ---
DR. GAMBOA CAME TO SEE PATIENT, AUNT ELIZABETH AND THE UNCLE WERE BOTH PRESENT. WITH THE PATIENTS CONSENT, DR. GAMBOA PERFORMED WOUND CARE AND EDUCATED FAMILY OF THE SURGERY AND THE TREATMENT PLAN IN EXTENSIVE DETAIL. THE FAMILY WAS VERY APPRECIATIVE AND THANKFUL, BUT DID EXPRESS FRUSTRATION FROM NOT BEING CONTACTED SOONER FROM AN ORTHO SURGEON. DR. GAMBOA GAVE FAMILY HIS PERSONAL CELL PHONE NUMBER AND TOLD THEM TO CALL DAY OR NIGHT WITH ANY OTHER QUESTIONS OR CONCERNS. AUNT IS VERY PLEASED WITH THIS ENCOUNTER AND STATED THAT THIS IS ALL SHE WANTED (TO KNOW HOW THE SURGERIES WENT AND THE TX PLAN).
--- NOTE | 2024-12-05 19:31 | NUR ---
SUMMARY: PT IS POD2 I&D. A/O, VSS. PAIN MANAGED. PIGTAIL DRAIN FLUSHED WITH 30 ML DAKIN'S SOLUTION PER ORDER AND DRAINED OUT OF PUMA, SS FLUID. PT TOLERATED WELL. SURGICAL SITE WNL. PT ABLE TO AMBULATE TO COMMODE TODAY FOR A VOID, DID WELL WITH WBAT AND IMMOBILIZER. THERAPY ALSO HELPED PT STAND AT SIDE OF BED. NO ACUTE CONCERNS, PT ENCOURAGED TO MOBILIZE. PT USING CALL LIGHT
[2024-12-06 02:50] VITALS: BP 148/80
--- NOTE | 2024-12-06 05:48 | NUR ---
SHIFT SUMMARY CARLITOS WAS ALERT AND FULLY ORIENTED ON ASSESMENT. MENTATION AND DEMEANOR IMPROVED FROM PREV NOC. PT WAS GIVEN FLEET ENEMA AT START OF SHIFT. PT HAD MULTIPLE LARGE LOOSE BMS T/O SHIFT. PAIN WELL CONTROLLED. PUMA OUTPUTTING MODERATE S/S THIS SHIFT. NO ACUTE EVENTS, NO NOTED CHANGES TO PT CONDITION. DISTAL CIRCULATION TO EXTS INTACT. DRESSING TO KNEE IS C/D/I
[2024-12-06 06:09] LABS: BASOPHILS ABSOLUTE AUTO 0.04 K/mm3 (0.00-0.23); BASOPHILS PERCENT AUTO 0 % (0-2); EOSINOPHILS ABSOLUTE AUTO 0.07 K/mm3 (0.00-0.68); EOSINOPHILS PERCENT AUTO 1 % (0-6); Hematocrit 25.8 % (33.0-51.0); Hemoglobin 8.4 g/dL (11.5-16.0); IMMATURE GRAN ABSOLUTE AUTO 0.42 K/mm3 (0.00-0.10); IMMATURE GRAN PERCENT AUTO 4 % (0-1); LYMPHOCYTES ABSOLUTE AUTO 1.55 K/mm3 (0.84-5.20); LYMPHOCYTES PERCENT AUTO 15 % (21-46); MONOCYTES PERCENT AUTO 5 % (4-13); Mean Corpuscular HGB 29.6 pg (26.0-34.0); Mean Corpuscular HGB Conc 32.6 g/dL (31.5-36.5); Mean Corpuscular Volume 91 fL (80-100); Mean Platelet Volume 8.6 fL (9.1-12.4); NEUTROPHILS ABSOLUTE AUTO 8.08 K/mm3 (1.96-9.15); NEUTROPHILS PERCENT AUTO 76 % (41-73); Platelet Count 476 K/mm3 (150-400); RDW Coefficient Variation 14.3 % (11.7-14.2); RDW Standard Deviation 47.3 fL (35.1-46.3); Red Blood Cell Count 2.84 M/mm3 (3.80-5.20); White Blood Cell Count 10.66 K/mm3 (4.00-11.30)
[2024-12-06 06:50] LABS: Bun/Creatinine Ratio 12.5 (12.0-20.0); Calcium, Blood 8.2 mg/dL (8.5-10.1); Creatinine, Blood 1.04 mg/dL (0.40-1.00); Potassium, Blood 3.6 mmol/L (3.5-5.5)
[2024-12-06 07:32] VITALS: BP 136/72
--- NOTE | 2024-12-06 13:00 | NUR ---
R KNEE DRESSING CHANGED. DAKIN SOLUTION INSTILLED PER ORDER. PT TOLERATED WELL.
[2024-12-06 14:50] VITALS: BP 121/56
[2024-12-06] MEDS ORDERED: Acetaminophen 325 MG TABLET PO PRN (17:15)
[2024-12-06] MEDS ORDERED: OxyCODONE HCL 5 MG TAB PO PRN (17:15)
--- NOTE | 2024-12-06 18:00 | NUR ---
THIS ASSEMBLY LINE WORKER OFFERED TO GET PATIENT UP TO A CHAIR FOR LUNCH AND DINNER.PATIENT DECLINED.RN NOTIFIED.
--- NOTE | 2024-12-06 18:04 | NUR ---
SHIFT SUMMARY PT IS POD#2 FROM I&D OF KNEE. PT DENIES PAIN WHILE AT REST BUT REPORTS PAIN WITH MOVEMENT. PO PAIN MEDICATION ORDERED, PT PROVIDED EDUCATION REGARDING PO PAIN MEDICATION USE BUT WAS UNINTERESTED/DEFENSIVE ABOUT USING ORAL PAIN MEDICATION. PT HAS BEEN OFFERED ASSISTANCE OOB BUT HAS DECLINED TODAY. PT HAS BEEN HAVING BOWEL MOVEMENTS AND IS USING THE BEDPAN. POWER GLIDE PLACED BY PARESH VERAS. PT HAS HAD INTERMITTENT NAUSEA WITH MEALS, ZOFRAN FOR NAUSEA. PT USES HER CALL LIGHT APPROPRIATELY.
[2024-12-06] MEDS ORDERED: NS 250 ML IV PRN (19:05)
[2024-12-06 19:28] VITALS: BP 118/70
[2024-12-07 02:13] VITALS: BP 141/72
--- NOTE | 2024-12-07 06:14 | NUR ---
SHIFT SUMMARY NO ACUTE CHANGES TO REPORT OVERNIGHT. PT HAS RESTED T/O THE NIGHT, DOES NOT REPORT PAIN. DRESSING TO RLE C/D/I. PUMA DRAIN WITH BROWN DISCHARGE 20 CC EMPTIED FOR THIS SHIFT. IV ANTIBIOTICS PER ORDERS. PLAN OF CARE REMAINS UNCHANGED. BED IN LOWEST POSITION, CALL LIGHT WITHIN REACH.
[2024-12-07 07:06] VITALS: BP 147/74
[2024-12-07] MEDS ORDERED: Polyethylene Glycol 3350 17 gm PO PRN (08:25)
[2024-12-07] MEDS ORDERED: HYDROcodone 5-APAP 325 TAB PO PRN (08:50)
[2024-12-07] MEDS ORDERED: Enoxaparin 40 MG/0.4 ML SYR SC SCH (09:00)
--- NOTE | 2024-12-07 09:43 | NUR ---
DR. REYNOLDS ROUNDED PT HAS HAD NAUSEA AT MEAL TIMES, DISCUSSED CONCERNS WITH FRANK TANG ORDERED WITH MEALS. DR. REYNOLDS NOTIFIED OF NEED FOR CHEMICAL PROPHYLAXIS, LOVENOX ORDERED BY DR. REYNOLDS. PT ALSO EXPRESSED CONCERNS THAT SHE DOES NOT FEEL THAT OXYCODONE IS EFFECTIVE FOR HER PAIN MANAGEMENT, DR. REYNOLDS NOTIFIED.
--- NOTE | 2024-12-07 10:55 | NUR ---
R KNEE DRESSING CHANGED. INCISION IRRIGATED WITH 30ML DAKIN SOLUTION ORDERED. STERILE TECHNIQUE MAINTAINED.
[2024-12-07] MEDS ORDERED: Metoclopramide HCl 10 MG Tab PO SCH (11:30)
[2024-12-07 15:40] VITALS: BP 141/79
--- NOTE | 2024-12-07 16:06 | NUR ---
SHIFT SUMMARY PT IS POD#3 FROM R KNEE I&D. PAIN MANAGED WITH NORCO THIS SHIFT. PT HAS BEEN RELUCTANT TO GET OOB BUT DID AGREE TO SIT UP TO THE CHAIR THIS AFTERNOON. PT USES HER CALL LIGHT APPROPRIATELY.
--- NOTE | 2024-12-07 17:12 | NUR ---
PT DECLINED TO REMAIN UP IN THE RECLINER FOR DINNER. PT REPORTS HIP PAIN BUT DENIED PAIN MEDICATION. SHE WAS ALSO OFFERED REPOSITIONING AND DECLINED. PT WAS ASSISTED TO THE BEDSIDE COMMODE AND THEN BACK TO BED. PT TOLERATED WELL.
[2024-12-07 19:04] VITALS: BP 135/73
[2024-12-08 04:56] VITALS: BP 135/78
[2024-12-08 05:41] LABS: Hematocrit 25.5 % (33.0-51.0); Hemoglobin 8.3 g/dL (11.5-16.0); Mean Corpuscular HGB 29.6 pg (26.0-34.0); Mean Corpuscular HGB Conc 32.5 g/dL (31.5-36.5); Mean Corpuscular Volume 91 fL (80-100); Mean Platelet Volume 8.8 fL (9.1-12.4); Platelet Count 517 K/mm3 (150-400); RDW Coefficient Variation 14.4 % (11.7-14.2); RDW Standard Deviation 47.8 fL (35.1-46.3); White Blood Cell Count 9.91 K/mm3 (4.00-11.30)
[2024-12-08 06:15] LABS: Bun/Creatinine Ratio 13.2 (12.0-20.0); Calcium, Blood 8.2 mg/dL (8.5-10.1); Creatinine, Blood 0.99 mg/dL (0.40-1.00); Potassium, Blood 4.1 mmol/L (3.5-5.5)
[2024-12-08 07:06] VITALS: BP 145/74
--- NOTE | 2024-12-08 07:27 | NUR ---
SUMMARY PT WITH NO ACUTE CHANGES EXCEPT REPORTED "SOME "NAUSEA THIS AM.DECLINED OFFERS OF NAUSEA MEDS.REQUESTED 7 UP
--- NOTE | 2024-12-08 08:47 | NUR ---
DRESSING CHANGED AT THIS TIME WITH DR. GAMBOA. 50ML OF DAKINES SOLUTION INFUSED AND 40ML OUT OF PUMA DRAIN AT THIS TIME.
[2024-12-08 14:47] VITALS: BP 139/77
--- NOTE | 2024-12-08 16:01 | NUR ---
DISCHARGE PT DISCHARGED TO [facility] VIA GURNEY TRANSPORT. PT REPORTS PAIN CONTROLLED DURING SHIFT. IMMOBILIZER REMAINS IN PLACE. DRESSING TO POWERGLIDE CHANGED PRIOR TO DISCHARGE. REPORT CALLED TO [facility] ALL QUESTIONS ANSWERED. ALL BELONGINGS WITH TRANSPORT AND PATIENT.
== END 2024-12-08 16:03 | DRG 486 ==
LOC: ER 10:16 → SURS 13:23 → MEDS 13:23 → ER 16:05 → SURS 19:09
PROVIDERS: Internal Medicine; Orthopaedic Surgery; Physician Assistant; ADMIT Internal Medicine
PROC: 0SBC0ZZ Excision of Right Knee Joint, Open Approach (ICD-10-PCS; principal; 2024-12-01 15:30)
DX: M00.061 Staphylococcal arthritis, right knee (principal); F15.20 Other stimulant dependence, uncomplicated; B95.61 Methicillin susceptible Staphylococcus aureus infection as the cause of diseases classified elsewhere; Z96.651 Presence of right artificial knee joint; F31.9 Bipolar disorder, unspecified; E78.5 Hyperlipidemia, unspecified; I12.9 Hypertensive chronic kidney disease with stage 1 through stage 4 chronic kidney disease, or unspecified chronic kidney disease; J45.909 Unspecified asthma, uncomplicated; F17.210 Nicotine dependence, cigarettes, uncomplicated; J44.9 Chronic obstructive pulmonary disease, unspecified; D63.1 Anemia in chronic kidney disease; D75.839 Thrombocytosis, unspecified; N18.30 Chronic kidney disease, stage 3 unspecified; K59.00 Constipation, unspecified; M19.90 Unspecified osteoarthritis, unspecified site; Z88.0 Allergy status to penicillin; Z88.8 Allergy status to other drugs, medicaments and biological substances; Z79.51 Long term (current) use of inhaled steroids; Z79.899 Other long term (current) drug therapy; Z90.710 Acquired absence of both cervix and uterus; Z98.890 Other specified postprocedural states; Z87.81 Personal history of (healed) traumatic fracture
CPT/HCPCS: 36415; 36416; 73562-RT; 73701; 80048; 80053; 80202; 82728; 83540; 83550; 83605; 85025; 85027; 87040; 87070; 87075; 87077; 87147; 87186; 87205; 93306; 93971; 94640; 94664; 94760; 96374; 97110; 97162; 97165; 97530; 97535; 99285-25; A9270; J0690; J1100; J1171; J1650; J1750; J1885; J2250; J2371; J2405; J2704; J2765; J3010; J3370; J7050; J7120; Q9967

== ENCOUNTER 2025-08-03 14:45 | Emergency (ER) | payer OTHER ==
[~2025-08-03] VITALS: Ht 167.6 cm; Wt 72.6 kg
[2025-08-03] MEDS ORDERED: Ketorolac Tromethamine 15mg Vial IV ONE (15:15)
[2025-08-03 16:05] VITALS: BP 140/92
== END 2025-08-03 16:35 | disposition home or self-care (01) ==
LOC: ER 14:45
DX: I87.2 Venous insufficiency (chronic) (peripheral) (principal); J45.909 Unspecified asthma, uncomplicated; Z88.0 Allergy status to penicillin; Z88.8 Allergy status to other drugs, medicaments and biological substances; Z79.899 Other long term (current) drug therapy; Z59.89 Other problems related to housing and economic circumstances
CPT/HCPCS: 73610; 93971; 96374; 99283-25; J1885